=== PATIENT | female | born 1990 ===

== ENCOUNTER → 2024-12-27 13:29 | Outpatient (BNVA) | payer MEDICAID, SELFPAY | PROVIDERS: Visit Provider Nurse Practitioner Women's Health | DX: Z01.419 Encounter for gynecological examination (general) (routine) without abnormal findings (principal) | CPT/HCPCS: 86592; 86695; 86696; 86705; 86706; 86709; 86803; 87340; 87491; 87591; 87624; 87661; 87806 ==

== ENCOUNTER 2025-02-14 17:13 | Outpatient (CLI) | payer MEDICAID, SELFPAY ==
[2025-02-14 17:34] LABS: Glucose Urine UA Negative (Normal); Nitrate Urine Negative (Negative); Specific Gravity, Urine 1.028 (1.005-1.030)
[2025-02-14 17:39] LABS: Add Urine Microscopic? YES
[2025-02-14 17:51] LABS: HCG, Serum Qual Positive (Negative)
[2025-02-14 17:58] LABS: Thyroid Stimulating Hormone 1.68 uIU/mL (0.27-4.20)
[2025-02-14 18:02] LABS: UA Slide Review UA Slide Review Perf
== END 2025-02-14 17:14 | disposition home or self-care (01) ==
PROVIDERS: Visit Provider Nurse Practitioner
DX: O20.0 Threatened abortion (principal)
CPT/HCPCS: 36415; 81001; 84443; 84702; 84703; 87086

== ENCOUNTER → 2025-02-26 13:40 | Outpatient (BNVA) | payer MEDICAID, SELFPAY | PROVIDERS: Visit Provider Nurse Practitioner Women's Health | DX: Z32.01 Encounter for pregnancy test, result positive (principal) | CPT/HCPCS: 84702; 86850; 86900 ==

== ENCOUNTER 2025-02-28 10:04 | Outpatient (CLI) | payer MEDICAID, SELFPAY ==
--- NOTE | 2025-02-28 10:15 | US_ITS ---
WS: [id number] EARLY OBSTETRICAL ULTRASOUND (<14 WEEKS). HISTORY: O20.0 - Threatened COMPARISON: None available. Ultrasound is performed transabdominal and transvaginal. Uterus is midline and anteverted. No intrauterine gestational sac is identified. Endometrium measures 9 mm. There is a small amount of fluid along the cervical canal. Small nabothian cysts also present. Uterus measures 10.8 x 5.5 x 5.5 cm. RIGHT ovary measures 3.8 x 2.4 x 3.1 cm. Normal vascularity. There is a hypoechoic mass associated with the ovary measuring 1.5 x 1.8 x 2.1 cm which is probably a hemorrhagic cyst or corpus luteal cyst. LEFT ovary measures 3.4 x 2.7 x 2.1 cm. There is a small follicle associated with the LEFT ovary measuring 2.2 x 2.1 x 2.0 cm. Normal ovarian vascularity. No free fluid in the pelvis. US/US OB <=14 wk fetus w transvag IMPRESSION: 1. No intrauterine gestational sac identified. If there is a positive pregnanc y test ectopic is not excluded. Recommend serial beta hCG follow-up. 2. No free fluid in the pelvis. 3. Both ovaries are normal size. 4. Normal endometrium at 9 mm.
== END 2025-02-28 10:05 | disposition home or self-care (01) ==
LOC: RAD 10:05
PROVIDERS: PCP Nurse Practitioner; Visit Provider Nurse Practitioner Women's Health
DX: O20.0 Threatened abortion (principal)
CPT/HCPCS: 76801; 76817

== ENCOUNTER → 2025-03-04 09:50 | Outpatient (BNVA) | payer MEDICAID, SELFPAY | PROVIDERS: PCP Nurse Practitioner; Visit Provider Nurse Practitioner | DX: N39.0 Urinary tract infection, site not specified (principal) | CPT/HCPCS: 81000 ==